=== PATIENT | male | born 1975 | race Two or more races ===

== ENCOUNTER → 2018-09-09 | Outpatient (CLI) | payer BC ==
--- NOTE | 2018-09-09 15:24 | CARD ---
MR#: [id number] Date of Study: 09/09/2018 Ordering Physician: BECKY ANDINO, Referring Physician: BECKY ANDINO, Tech: Christina Phillips APPROVED REPORT EXAM: Two-dimensional and M-mode echocardiogram with Doppler and color Doppler. Other Information Quality : GoodHR: 75bpm Rhythm : NSR INDICATION Palpitations RISK FACTORS Hypertension Hyperlipidemia Diabetes 2D DIMENSIONS RVDd2.8 (2.9-3.5cm)Left Atrium(2D)3.2 (1.6-4.0cm) IVSd0.7 (0.7-1.1cm)Aortic Root(2D)3.4 (2.0-3.7cm) LVDd5.1 (3.9-5.9cm)LVOT Diameter2.3 (1.8-2.4cm) PWd1.0 (0.7-1.1cm)LVDs3.3 (2.5-4.0cm) FS (%) 35.9 %SV80.8 ml LVEF(%)65.2 (>50%) Aortic Valve AoV Peak Phil.108.8cm/sAoV VTI18.1cm AO Peak GR.4.7mmHgLVOT Peak Phil.108.1cm/s LVOT VTI 17.72cmAO Mean GR.2mmHg MICHEL (VMAX)3.83vk7IQV (VTI)3.95cm2 Mitral Valve MV E Hbignlbj59.8cm/sMV DECEL NVUX377ef MV A Sebrlich45.4cm/sMV HYT89zg E/A Ratio1.1MVA (PHT)3.02cm2 TDI E/Lateral E'6.1E/Medial E'7.5 Tricuspid Valve RAP [id number] Peak Gr.22mmHg [id number] Pulmonary Vein S1 Hjryjeeu37.5cm/sD2 Nrywainm25.6cm/s PVa [id number] LEFT VENTRICLE The left ventricle is normal size. There is normal left ventricular wall thickness. The left ventricu lar systolic function is normal. The Ejection Fraction is 55%. There is normal LV segmental wall bryn on. The left ventricular diastolic function and filling is normal for age. RIGHT VENTRICLE The right ventricle is normal size. There is normal right ventricular wall thickness. The right ventr icular systolic function is normal. ATRIA The left atrium size is normal. The right atrium size is normal. The interatrial septum is intact wit h no evidence for an atrial septal defect or patent foramen ovale as noted on 2-D or Doppler imaging. AORTIC VALVE The aortic valve is normal in structure and function. Doppler and Color Flow revealed no significant aortic regurgitation. There is no significant aortic valvular stenosis. MITRAL VALVE The mitral valve is normal in structure and function. There is no mitral valve stenosis. Doppler and Color-flow revealed trace mitral regurgitation. TRICUSPID VALVE The tricuspid valve is not well visualized. Doppler and Color Flow revealed trace tricuspid regurgita tion. There is no tricuspid valve stenosis. PULMONIC VALVE The pulmonic valve is not well visualized. Doppler and Color Flow revealed trace pulmonic valvular re gurgitation. GREAT VESSELS The aortic root is normal in size. Normal pulmonary venous flow (Doppler). The IVC is normal in size and collapses >50% with inspiration. PERICARDIAL EFFUSION There is no evidence of significant pericardial effusion. Critical Notification Critical Value: No <Conclusion> The left ventricular systolic function is normal. The Ejection Fraction is 55%. There is normal LV segmental wall motion. Trace mitral regurgitation. Trace tricuspid regurgitation. There is no evidence of significant pericardial effusion. Signed by : Becky Andino, Electronically Approved : 09/09/2018 15:22:58
--- NOTE | 2018-09-12 10:22 | EKG ---
[facility] [address] [place] [address] Test Date: 2018-09-10 Test Time: 08:13:25 Pat Name: SAMMI WREN Department: Room: Gender: Replenishment Analyst: : 1975 Requested By: BECKY ANDINO Order Number: [id number] Reading MD: Becky Andino Interpretive Statements Patient was predominantly in normal sinus rhythm with heart rates ranging from 47 bpm to 122 bpm with an average of 79 bpm. Very few supraventricular ectopic beats were noted. No significant arrhythmias were seen. CONCLUSIONS Holter monitor did not show any significant arrhythmias. Electronically Signed On 09-12-2018 11:20:18 CDT by Becky Andino
== END | disposition home or self-care (01) ==
LOC: ECHO 08:38
PROVIDERS: ATTEND Internal Medicine Cardiovascular Disease
DX: R00.2 Palpitations (principal); I10 Essential (primary) hypertension; E11.9 Type 2 diabetes mellitus without complications; E78.5 Hyperlipidemia, unspecified
CPT/HCPCS: 93225; 93226; 93306

== ENCOUNTER → 2018-10-25 | Outpatient (CLI) | payer BC ==
[~2018-10-25] MED LIST: REGADENOSON 0.4 MG/5 ML DISP.SYRIN. IV ONE
--- NOTE | 2018-10-25 11:41 | RAD ---
MR#: [id number] Date of Study: 10/25/2018 Ordering Physician: BECKY CASH, Referring Physician: SANIA DE PAZ Tech: DAVID Jaquez ARRT (R) (N) APPROVED REPORT Test Type: Pharmacological Stress Nurse/Tech: Ailyn DIXON Test Indications: Dyspnea Cardiac History: HTN, Family Hx, See EMR Medications: See EMR Medical History: See EMR Resting ECG: SR Resting Heart Rate: 71 bpm Resting Blood Pressure: 114/70mmHg Pretest Chest Pain: No chest pain Nurse/Tech Notes Lungs sounds clear, Heart tones regular. Consent: The procedure was explained to the patient in lay terms. Informed consent was witnessed. Kana eout was entered into [employer]. History and Stress Test performed by RT Noah Wu) (N) Pharm. Details Pharmacologic stress testing was performed using 0.4mg per 5ml of regadenoson given intravenously ove r 7-10 seconds. Stress Symptoms Pt described having chest pressure at 3/10 in stage 1 @ 01:00 time. Chest Pressure was resolved to 0 /10 at 02:55 in the recovery phase. POST EXERCISE Reason for Termination: Infusion complete Max HR: 109 bpm Max Blood Pressure: 108/66mmHg Chest Pain: Yes. See stress symptoms Arrhythmia: No. ST Change: No. INTERPRETATION Stress EKG Conclusion: No evidence of stress induced EKG changes. Imaging Protocol IMAGE PROTOCOL: Rest Tc-99m/stress Tc-99m 1 day Rest: Stress: Viability: Radiopharm.Tc99m ZbxhqsxpdTu60n Sestamibi Pwvq91sAw 32mCi Img Date 10/25/2018 10/25/2018 Inj-Img Jaal69ioj. 60min. Rest Admin Site:IV - Right AntecubitalAdministrator:DAVID Jaquez, JAIME (R)(N) Stress Admin Site: IV - Right AntecubitalAdministrator: RT Noah Wu)(N) STRESS DATA End Diast. Vol.88.0mlAv. Heart Rate78.0bpm End Syst. Vol.26.0mlCO Index BSA0.0L/min Myocardial Tuzr183.0gEject. Nloftkps34.0% Stress Rates Pk. Fill Rate2.67EDV/secLVtime Pk. Fill 197.33msec Pk. Empty Rate2.94ESV/secLVtime Pk. Rabsn350.88msec 1/3 Pk. Fill1.91EDV/sec Stress Scores Regional WT0.00Summed WT1.00 Regional WM0.00Summed WM1.00 The rest and stress images show normal perfusion, normal contraction and thickening. LV Perf. Quant 17 Seg. SSS1.00 17 Seg. SRS0.00 17 Seg. SDS1.00 Stress Defect Extent (% LAD)0.00Rest Defect Extent (% LAD)0.00Rev. Defect Extent (% LAD)0.00 Stress Defect Extent (% LCX) 5.00Rest Defect Extent (% LCX)0.00Rev. Defect Extent (% LCX)0.00 Stress Defect Extent (% RCA)0.00Rest Defect Extent (% RCA)0.00Rev. Defect Extent (% RCA)0.00 Stress Defect Extent (% GEN)0.90Rest Defect Extent (% GEN)0.00Rev. Defect Extent (% GEN)0.00 Other Information Quality:Good Risk Assessment: Low Risk Conclusion 1. No evidence of EKG changes with stress testing. 2. Normal perfusion at stress/rest. 3. Low risk study. 4. EF > 60%. Signed by : Gabriel García, Electronically Approved : 10/25/2018 11:40:19
== END | disposition home or self-care (01) ==
LOC: NM 08:14
PROVIDERS: ATTEND Internal Medicine Cardiovascular Disease
DX: R06.00 Dyspnea, unspecified (principal); I10 Essential (primary) hypertension; E11.9 Type 2 diabetes mellitus without complications; E78.5 Hyperlipidemia, unspecified; R07.89 Other chest pain; Z82.49 Family history of ischemic heart disease and other diseases of the circulatory system
CPT/HCPCS: 78452; 93017; 96374; 96375; 96376; A9500; J2785